=== PATIENT | female | born 1980 | race Caucasian/White ===

== ENCOUNTER 2016-10-29 08:59 | Emergency (ER) | payer OTHER ==
[2016-10-29] MEDS ORDERED: Zofran 4 MG/2 ML VIAL IV ONE (09:39)
[2016-10-29] MEDS ORDERED: Sodium Chloride 0.9% 1000 ML 1,000 ML IV STA ×2 (09:39→11:07)
[2016-10-29] MEDS ORDERED: Zofran 4 MG/2 ML VIAL ONE (09:47)
[2016-10-29] MEDS ORDERED: Sodium Chloride 0.9% 1000 ML 1,000 ML ONE ×2 (09:48→11:14)
--- NOTE | 2016-10-29 09:51 | ERPHSYRPT ---
- History of Present Illness Time Seen by Provider: 10/29/16 09:35 Historian: patient Exam Limitations: clinical condition Patient Subjective Stated Complaint: dr on tuesday for discharge--dx with yeast infection. vomiting 4-5 times daily since tuesday. Triage Nursing Assessment: denies pain with urination but states she sometimes has blood with clots in urine. c/o lower abd pain and lower back pain. all over body aches. fever earlier in the week. bs present. abd soft. dry oral membranes. Physician History: PATIENT WITH HISTORY OF KIDNEY STONES, COMPLAINS OF LEFT FLANK PAIN WITH RADIATION AROUND LOWER ABDOMEN ASSOCIATED WITH EMESIS 4-5 EPISODES X 4 DAYS. HAD EPISODES OF DARK URINE WITH COTS. HAS GENERALIZED BODY ACHES AND LOW GRADE FEVER. DENIES DIARRHEA, COUGH, DIFFICULTY BREATHING. Timing/Duration: day(s) Activities at Onset: none Quality: throbbing Abdominal Pain Onset Location: LUQ, LLQ Pain Radiation: flank Severity of Pain-Max: severe Severity of Pain-Current: severe Modifying Factors: Improves With: urinating, vomiting Associated Symptoms: nausea, vomiting, other (HEMATURIA) Previous symptoms: same symptoms as today Allergies/Adverse Reactions: penicillin G Allergy (Verified 10/29/16 09:15) Hives Home Medications: No Home Meds 1 [facility] UD 10/29/16 [History] Hx Tetanus, Diphtheria Vaccination/Date Given: Yes Hx Influenza Vaccination/Date Given: No Hx Pneumococcal Vaccination/Date Given: No Immunizations Up to Date: Yes - Review of Systems Constitutional: Fever, No Chills Eyes: No Symptoms Ears, Nose, & Throat: No Symptoms Respiratory: No Symptoms, No Cough, No Dyspnea Cardiac: No Symptoms, No Chest Pain, No Edema, No Syncope Abdominal/Gastrointestinal: Abdominal Pain, Nausea, Vomiting, No Diarrhea Genitourinary Symptoms: Frequency, Hematuria, No Dysuria Musculoskeletal: Arthralgias, No Back Pain, No Neck Pain Skin: No Rash Neurological: No Dizziness, No Focal Weakness, No Sensory Changes Psychological: No Symptoms Endocrine: No Symptoms Hematologic/Lymphatic: No Symptoms All Other Systems: Reviewed and Negative - Past Medical History Pertinent Past Medical History: Yes (no hx of kidney ston) History: Other (KIDNEY STONES) Other Medical History: psorasis - Past Surgical History Past Surgical History: Yes Female Surgical History: Tubal Ligation - Social History Smoking Status: Current every day smoker How long have you smoked: YRS Exposure to second hand smoke: Yes Drug Use: none Patient Lives Alone: No Significant Family History: diabetes (mother), other (father has polycystic kidney disease) - Female History Hx Last Menstrual Period: 10/12/16 Hx Now: No (TUBAL) - Nursing Vital Signs Nursing Vital Signs: Initial Vital Signs Temperature 98.6 F Temperature Source Oral Pulse Rate 95 Respiratory Rate 18 Blood Pressure [] 101/65 Pain Intensity 3 - Physical Exam General Appearance: mild distress Eye Exam: PERRL/EOMI, eyes nml inspection Ears, Nose, Throat Exam: normal ENT inspection, pharynx normal, moist mucous membranes Neck Exam: normal inspection, non-tender, supple, full range of motion Respiratory Exam: normal breath sounds, lungs clear, No respiratory distress Cardiovascular Exam: regular rate/rhythm, normal heart sounds Gastrointestinal/Abdomen Exam: soft, normal bowel sounds, tenderness (LLQ TENDERNESS), No mass Pelvic Exam: not done Back Exam: normal inspection, normal range of motion, CVA tenderness (BILAERAL LEFT > RIGHT), No vertebral tenderness Extremity Exam: normal inspection, normal range of motion, pelvis stable Neurologic Exam: alert, oriented x 3, cooperative, normal mood/affect, nml cerebellar function, sensation nml, No motor deficits Skin Exam: normal color, warm, dry SpO2 Interpretation: normal SpO2: 97 Oxygen Delivery: Room Air - CT Exams Abdomen/Pelvis CT Interpretation: Discussed w/radiologist (NONOBSTRUCTING BILATERAL RENAL MICRO -CALCULI, NO ACUTE INTRA-ABDOMIANL/PELVIC ABNORMALITIES) Ordered Tests: Active Orders 24 hr Category Date Time Status IV Insertion STAT Care 10/29/16 09:39 Active ABDOMEN AND PELVIS W/0 CONTRAS [CT] Stat Exams 10/29/16 09:43 Completed BLOOD CULTURE Stat Lab 10/29/16 10:04 Received BMP Stat Lab 10/29/16 09:41 Completed CBC W DIFF Stat Lab 10/29/16 09:41 Completed Manual Differential NC Stat Lab 10/29/16 09:41 Completed UA W/ MICROSCOPIC Stat Lab 10/29/16 09:59 Completed Medication Summary Discontinued Medications Generic Name Dose Route Start Last Admin Trade Name Freq PRN Reason Stop Dose Admin Hydromorphone HCl 1 mg 10/29/16 10:40 10/29/16 11:20 Hydromorphone 1 Mg/Ml Ampule IV 10/29/16 10:41 1 mg STAT ONE Administration Hydromorphone HCl Confirm 10/29/16 11:14 Hydromorphone 1 Mg/Ml Ampule Administered 10/29/16 11:15 Dose 1 mg .ROUTE .STK-MED ONE Sodium Chloride 1,000 mls @ 999 mls/hr 10/29/16 09:39 10/29/16 09:49 Sodium Chloride 0.9% 1000 Ml IV 10/29/16 10:39 999 mls/hr .Q1H1M STA Administration Sodium Chloride Confirm 10/29/16 09:48 Sodium Chloride 0.9% 1000 Ml Administered 10/29/16 09:49 Dose 1,000 mls @ ud .ROUTE .STK-MED ONE Levofloxacin/Dextrose 100 mls @ 100 mls/hr 10/29/16 10:40 10/29/16 11:25 Levofloxacin 500mg/100ml D5w IV 10/29/16 11:39 100 mls/hr STAT ONE Administration Sodium Chloride 1,000 mls @ 999 mls/hr 10/29/16 11:07 10/29/16 11:20 Sodium Chloride 0.9% 1000 Ml IV 10/29/16 12:07 999 mls/hr .Q1H1M STA Administration Sodium Chloride Confirm 10/29/16 11:14 Sodium Chloride 0.9% 1000 Ml Administered 10/29/16 11:15 Dose 1,000 mls @ ud .ROUTE .STK-MED ONE Levofloxacin/Dextrose Confirm 10/29/16 11:14 Levofloxacin 500mg/100ml D5w Administered 10/29/16 11:15 Dose 100 mls @ ud IV .STK-MED ONE Ketorolac Tromethamine 30 mg 10/29/16 12:35 10/29/16 12:39 Toradol 30 Mg Injection IV 10/29/16 12:36 30 mg STAT ONE Administration Ketorolac Tromethamine Confirm 10/29/16 12:39 Toradol 30 Mg Injection Administered 10/29/16 12:40 Dose 30 mg .ROUTE .STK-MED ONE Ondansetron HCl 4 mg 10/29/16 09:39 10/29/16 09:51 Zofran 4 Mg/2 Ml Vial IV 10/29/16 09:40 4 mg STAT ONE Administration Ondansetron HCl Confirm 10/29/16 09:47 Zofran 4 Mg/2 Ml Vial Administered 10/29/16 09:48 Dose 4 mg .ROUTE .STK-MED ONE Lab/Rad Data: Laboratory Result Diagrams 10/29/16 09:41 10/29/16 09:41 Laboratory Results 10/29/16 10/29/16 10/29/16 Range/Units 09:59 09:41 09:41 WBC 7.4 (4.0-10.5) K/mm3 RBC 5.28 (4.1-5.4) M/mm3 Hgb 14.3 (12.0-16.0) gm/dl Hct 43.5 (35-47) % MCV 82.4 (78-100) fl MCH 27.1 (26-32) pg MCHC 32.9 (32-36) g/dl RDW 14.6 H (11.5-14.0) % Plt Count 89 L (150-450) K/mm3 MPV 11.1 H (6-9.5) fl Segmented Neutrophils 86 H (36.0-66.0) % Band Neutrophils 3 H (0.0-2.0) % Lymphocytes (Manual) 6 L (24-44) % Monocytes (Manual) 1 (0.0-12.0) % Eosinophils (Manual) 4 H (0.00-3.0) % Differential Comment NORMAL Platelet Estimate NORMAL (NORMAL) Sodium 134 L (136-145) mEq/L Potassium 4.1 (3.5-5.1) mEq/L Chloride 98 (98-107) mEq/L Carbon Dioxide 23.0 (21-32) mEq/L Anion Gap 16.7 H (5-15) MEQ/L BUN 10 (9-20) mg/dL Creatinine 0.81 (0.55-1.30) mg/dl Estimated GFR > 60 ML/MIN Glucose 110 (70-110) MG/DL Calcium 8.5 (8.5-10.1) mg/dL Ur Collection Type CCMS Urine Color TRINH (YELLOW) Urine Appearance CLOUDY (CLEAR) Urine pH 6.0 (5-6) Ur Specific [place] >=1.030 (1.005-1.025) Urine Protein 100 (Negative) Urine Glucose (UA) NEGATIVE (NEGATIVE) mg/dL Urine Ketones >=160 (NEGATIVE) Urine Nitrite NEGATIVE (NEGATIVE) Urine Bilirubin LARGE (NEGATIVE) Urine Urobilinogen 4 (0-1) mg/dL Urine WBC (Auto) TRACE (NEGATIVE) Urine RBC (Auto) MODERATE (0-5) Ramesh/ul Urine Microscopic RBC 5-10 (0-2) /HPF Urine Microscopic WBC 25-50 (0-5) /HPF Ur Epithelial Cells PACKED (FEW) /HPF Urine Bacteria FEW (NEGATIVE) /HPF Urine Yeast RARE (NEGATIVE) /HPF Specimen Received 10-29-16 1003 - Progress Progress: improved Progress Note: 10/29/16 11:06 PATIENT GIVEN IV BOLUS NORMAL SALINE 1 LITER/HR X 2, ZOFRAN 4MG, DILAUDID 1MG IV , LEVAQUIN 500MG IVPB 10/29/16 12:34 PATIENT GIVEN TORADOL 30MG IV Counseled pt/family regarding: lab results, diagnosis, need for follow-up, rad results - Departure Time of Disposition: 13:00 Departure Disposition: Home (1250) Clinical Impression: URINARY TRACT INFECTION, BILATERAL RENAL CALCULI Condition: Stable Critical Care Time: No Referrals: YANET JERONIMO MD [Primary Care Provider] - Additional Instructions: ANTIBIOTIC LEVAQUIN 500MG DAILY FOR 10 DAYS. ZOFRAN 4MG EVERY 4 HOURS FOR NAUSEA. NORCO 10/325 EVERY 4 HOURS FOR PAIN. DRINK PLENTY OF FLUIDS. USE A STRAINER TO STRAIN YOUR URINE FOR 1 WEEK. CONSULT YOUR FAMILY PHYSICIAN FOR EVALUATION IN 1 WEE. Prescriptions: Hydrocodone/APAP 10/325 mg [Derby 10/325 MG Tablet] 1 tab PO Q4H PRN PRN # 15 tablet PRN Reason: Pain Levofloxacin [Levaquin] 500 mg PO DAILY #10 tablet Ondansetron [Zofran Odt] 4 mg PO Q4-6HPRN PRN #4 tab.rapdis PRN Reason: Nausea
[2016-10-29 09:56] LABS: Mean Cell Volume 82.4 fl (78-100); Mean Corpuscular Hemoglobin 27.1 pg (26-32); Mean Platelet Volume 11.1 fl (6-9.5); Platelet Count 89 K/mm3 (150-450); Red Blood Count 5.28 M/mm3 (4.1-5.4); Red Cell Distribution Width 14.6 % (11.5-14.0); White Blood Count 7.4 K/mm3 (4.0-10.5)
[2016-10-29 10:22] LABS: ANION GAP 16.7 MEQ/L (5-15); BAND 3 % (0.0-2.0); BLOOD UREA NITROGEN 10 mg/dL (9-20); CHLORIDE 98 mEq/L (98-107); Eosinophil 4 % (0.00-3.0); Glucose 110 MG/DL (70-110); Platelet Estimate NORMAL (NORMAL); Potassium 4.1 mEq/L (3.5-5.1); SODIUM 134 mEq/L (136-145); Total Cells Counted 100
[2016-10-29 10:27] LABS: COMPLETE URINE MICROSCOPIC? YES; Collection Type CCMS; WBC 25-50 /HPF (0-5)
[2016-10-29 10:28] LABS: Bacteria FEW /HPF (NEGATIVE); Epithelial Cells PACKED /HPF (FEW); Yeast RARE /HPF (NEGATIVE)
[2016-10-29] MEDS ORDERED: Levofloxacin 500MG/100ML D5W 100 ML IV ONE ×2 (10:40→11:14)
[2016-10-29] MEDS ORDERED: Hydromorphone 1 mg/ml Ampule IV ONE (10:40)
--- NOTE | 2016-10-29 10:50 | XRAY ---
Indication: Lower abdomen and flank pain. History of stone. Multiple contiguous axial images obtained through the abdomen and pelvis without contrast as ordered. Comparison: CT renal stone study of October 28, 2013. Again minimal bibasilar fibrosis/scarring. Heart is not enlarged. Noncontrasted stomach and bowel loops appear nonobstructed. There is now mild scattered colonic fecal debris throughout. Normal appendix. Again tiny cul-de-sac fluid presumed physiologic from rupture/leaking cyst. No walled off fluid or free air. There remains solitary nonobstructing micro-calculus in each kidney and bilateral tubal ligation clips. Remaining liver, gallbladder, pancreas, spleen, adrenal glands, kidneys, ureters, bladder, uterus, and aorta appear unremarkable for noncontrast exam. Osseous structures intact. Impression: 1. Fecal stasis without obstruction. 2. Again tiny cul-de-sac fluid presumed from rupture/leaking cyst. 3. Nonobstructing bilateral renal micro-calculi. 4. No acute intra-abdominal/pelvic abnormalities on this noncontrast exam. CT DI 18.11
[2016-10-29] MEDS ORDERED: Hydromorphone 1 mg/ml Ampule ONE (11:14)
[2016-10-29] MEDS ORDERED: TORAdol 30 mg Injection IV ONE (12:35)
[2016-10-29] MEDS ORDERED: TORAdol 30 mg Injection ONE (12:39)
[2016-10-29 13:07] VITALS: BP 119/70; PULSE 76; O2SAT 100
== END 2016-10-29 13:07 | disposition home or self-care (01) ==
LOC: ED 08:59
DX: N39.0 Urinary tract infection, site not specified (principal); N20.0 Calculus of kidney; M54.5 Low back pain; R10.31 Right lower quadrant pain; R10.11 Right upper quadrant pain; R11.2 Nausea with vomiting, unspecified
CPT/HCPCS: 36000; 36415; 74176; 80048; 81000; 85025; 87040; 96360; 96361; 96365; 96374; 96375; 99283; 99284; J1170; J1885; J1956; J2405

== ENCOUNTER 2021-08-02 18:38 | Emergency (ER) | payer OTHER ==
[2021-08-02] MEDS ORDERED: PERCOCET TABLET 5/325MG PO ONE (19:06)
[2021-08-02] MEDS ORDERED: ZOFRAN ODT 4 MG PO ONE (19:07)
[2021-08-02] MEDS ORDERED: PERCOCET TABLET 5/325MG ONE (19:12)
[2021-08-02] MEDS ORDERED: ZOFRAN ODT 4 MG ONE (19:12)
[2021-08-02] MEDS ORDERED: CLEOCIN 150 MG CAPSULE PO ONE (19:16)
--- NOTE | 2021-08-02 19:16 | ERPHSYRPT ---
- History of Present Illness Time Seen by Provider: 08/02/21 19:06 Source: patient Exam Limitations: no limitations Patient Subjective Stated Complaint: pt here for pain to left upper jaw, she had a tooth removed tuesday, took tylenol at home Triage Nursing Assessment: pt alert, resp easy, skin w/d/p. face mask in place, has swelling to gum area upper left, Physician History: 41 years old female presented in the ER after she had a tooth extraction 4 days ago and since yesterday having pain sharp shooting moderate to severe intensity with no relief taking ibuprofen. Reports associated swelling in the left upper tooth extraction area. No fever or chills reported. Timing/Duration: abrupt onset, yesterday Severity: moderate ENT Location: dental Prearrival Treatment: over the counter meds Associated Symptoms: jaw pain, tooth pain, difficulty swallowing Allergies/Adverse Reactions: penicillin G Allergy (Verified 08/02/21 18:49) Hives Home Medications: Clobetasol Propionate/Emoll [Clobetasol Emollient 0.05% Crm] 1 ea DAILY 08/02/21 [History] Paroxetine HCl 1 ea DAILY 08/02/21 [History] Hx Tetanus, Diphtheria Vaccination/Date Given: Yes Hx Influenza Vaccination/Date Given: No Hx Pneumococcal Vaccination/Date Given: No Immunizations Up to Date: Yes Travel Risk - International Travel Have you traveled outside of the country in past 3 weeks: No - Coronavirus Screening Are you exhibiting any of the following symptoms?: No Close contact with a COVID-19 positive Pt in past 14-21 Days: No - Vaccine Status Have you recieved a Covid-19 vaccination: Yes 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 - Vaccination Dates Date of 2cond Vaccination (if applicable): oct 2020 - Review of Systems Constitutional: No Symptoms Eyes: No Symptoms Ears, Nose, & Throat: Painful Swallowing Respiratory: No Symptoms Cardiac: No Symptoms Musculoskeletal: No Symptoms Neurological: No Symptoms Psychological: No Symptoms - Past Medical History Pertinent Past Medical History: Yes (no hx of kidney ston) History: Other Other Medical History: psorasis - Past Surgical History Past Surgical History: Yes Female Surgical History: Tubal Ligation - Social History Smoking Status: Current every day smoker How long have you smoked: YRS Exposure to second hand smoke: Yes Drug Use: none Patient Lives Alone: No Significant Family History: diabetes (mother), other (father has polycystic kidney disease) - Female History Hx Last Menstrual Period: post Hx Now: No - Nursing Vital Signs Nursing Vital Signs: Initial Vital Signs Temperature 97.0 F 08/02/21 18:45 Pulse Rate 67 08/02/21 18:45 Respiratory Rate 18 08/02/21 18:45 Blood Pressure 115/84 08/02/21 18:45 O2 Sat by Pulse Oximetry 99 08/02/21 18:45 Pain Scale Pain Intensity 10 - Physical Exam General Appearance: no apparent distress, alert Eye Exam: bilateral eye: normal inspection, PERRL, EOMI Ear Exam: bilateral ear: auricle normal, canal normal, TM normal Nasal Exam: normal inspection Throat Exam: normal, pharynx normal, dental tenderness (Left bicuspid #12 extraction with minimal erythema around with some tenderness of gingiva. Partially visible clot) Neck Exam: normal inspection, non-tender, supple, full range of motion Cardiovascular/Respiratory Exam: normal breath sounds, regular rate/rhythm Neurologic Exam: alert, oriented x 3 Skin Exam: normal color SpO2 Interpretation: normal SpO2: 99 O2 Delivery: Room Air Ordered Tests: Medication Summary Discontinued Medications Generic Name Dose Route Start Last Admin Trade Name Freq PRN Reason Stop Dose Admin Ondansetron HCl 4 mg 08/02/21 19:07 Zofran 4 Mg/Udtablet Orally Disintegrating PO 08/02/21 19:08 STAT ONE Oxycodone/Acetaminophen 2 tab 08/02/21 19:06 Oxycodone Hcl/Apap 5 Mg/325 Mg Tablet PO 08/02/21 19:07 STAT ONE - Progress Progress: improved Progress Note: 08/02/21 19:23 She is given pain medication along with antibiotics and topical anesthetic with dental balls. Outpatient follow-up with her dentist tomorrow. She possibly have dry socket. Counseled pt/family regarding: diagnosis, need for follow-up - Departure Departure Disposition: Home Clinical Impression: Dental infection Condition: Stable Critical Care Time: No Referrals: YANET JERONIMO MD [Primary Care Provider] - KARISHMA SANTOS DDS [NON-STAFF PHY W/O PRIVILEGES] - Follow up/PCP as directed (Tomorrow for reevaluation.) Instructions: Dental Pain (DC) Additional Instructions: Take pain medications as needed. Follow-up with your primary dentist for reevaluation. Return to ER for any worsening. Prescriptions: Clindamycin HCl 300 mg PO QID 7 Days #28
[2021-08-02] MEDS ORDERED: OXYCODONE-ACETAMINOPHEN 10-325 PO STA (19:25)
[2021-08-02] MEDS ORDERED: CLEOCIN 150 MG CAPSULE ONE (19:25)
[2021-08-02] MEDS ORDERED: OXYCODONE-ACETAMINOPHEN 10-325 ONE (19:29)
== END 2021-08-02 19:54 | disposition home or self-care (01) ==
LOC: ED 18:38
DX: K04.7 Periapical abscess without sinus (principal); R68.84 Jaw pain; R13.10 Dysphagia, unspecified; Z72.0 Tobacco use
CPT/HCPCS: 99283; Q0162; A9270-GY